=== PATIENT | female | born 1995 | race Two or more races ===

== ENCOUNTER → 2016-12-30 | Outpatient (CLI) | payer BC ==
[2016-12-30 10:24] LABS: Basophils # (auto) 0 uL; Basophils % (auto) 0.2 % (0.0-2.0); Eosinophils # (auto) 0.1 uL; Eosinophils % (auto) 1.4 % (0.0-7.0); Hematocrit 42.6 % (36.0-46.0); Hemoglobin 14.1 g/dL (12.2-16.2); Lymphocytes # (auto) 2.6 uL; Lymphocytes % (auto) 32.5 % (10.0-50.0); Mean Corpuscular Hemoglobin 28.6 pg (28.0-32.0); Mean Corpuscular Hgb Conc. 33.2 g/dL (32.0-36.0); Mean Corpuscular Volume 86.2 fL (80.0-100.0); Mean Platelet Volume 9.5 fL (7.4-10.4); Monocytes # (auto) 0.5 uL; Monocytes % (auto) 5.6 % (0.0-12.0); Neutrophils # (auto) 4.9 uL; Neutrophils % (auto) 60.3 % (37.0-80.0); Platelet Count (auto) 231 10^3/uL (140-450); Red Cell Distribution Width 13.5 % (11.6-16.0); White Blood Cell 8.1 10^3/uL (4.4-10.8)
== END | disposition home or self-care (01) ==
LOC: LAB 09:24
PROVIDERS: ATTEND Specialist
DX: Z34.00 Encounter for supervision of normal first pregnancy, unspecified trimester (principal); Z11.3 Encounter for screening for infections with a predominantly sexual mode of transmission; Z31.430 Encounter of female for testing for genetic disease carrier status for procreative management; Z36 Encounter for antenatal screening of mother
CPT/HCPCS: 36415; 81220; 82951; 83036; 84702; 85025; 86592; 86703; 86762; 86850; 86900; 86901; 87086; 87340

== ENCOUNTER → 2017-01-20 | Outpatient (CLI) | payer BC | END | disposition home or self-care (01) | LOC: LAB 07:25 | PROVIDERS: ATTEND Specialist | DX: R73.09 Other abnormal glucose (principal) | CPT/HCPCS: 82951; 82952 ==

== ENCOUNTER → 2017-03-03 | Outpatient (CLI) | payer BC | END | disposition home or self-care (01) | LOC: LAB 08:08 | PROVIDERS: ATTEND Obstetrics & Gynecology | DX: O99.810 Abnormal glucose complicating pregnancy (principal); Z3A.00 Weeks of gestation of pregnancy not specified | CPT/HCPCS: 82951; 82952 ==

== ENCOUNTER → 2017-04-08 | Outpatient (CLI) | payer BC ==
[2017-04-08 07:27] LABS: Basophils # (auto) 0 uL; Basophils % (auto) 0.3 % (0.0-2.0); Eosinophils # (auto) 0.2 uL; Eosinophils % (auto) 2.1 % (0.0-7.0); Hematocrit 39.3 % (36.0-46.0); Hemoglobin 13.2 g/dL (12.2-16.2); Lymphocytes # (auto) 2.8 uL; Lymphocytes % (auto) 26.4 % (10.0-50.0); Mean Corpuscular Hemoglobin 30.1 pg (28.0-32.0); Mean Corpuscular Hgb Conc. 33.7 g/dL (32.0-36.0); Mean Corpuscular Volume 89.4 fL (80.0-100.0); Mean Platelet Volume 8.2 fL (6.9-10.8); Monocytes # (auto) 0.9 uL; Monocytes % (auto) 8.2 % (0.0-12.0); Neutrophils # (auto) 6.7 uL; Nucleated Red Blood Cells % 0.1 %; Platelet Count (auto) 227 10^3/uL (140-450); Red Cell Distribution Width 14.4 % (11.8-14.3); White Blood Cell 10.6 10^3/uL (4.4-10.8)
== END | disposition home or self-care (01) ==
LOC: LAB 07:09
PROVIDERS: ATTEND Specialist
DX: O24.419 Gestational diabetes mellitus in pregnancy, unspecified control (principal); Z3A.28 28 weeks gestation of pregnancy
CPT/HCPCS: 36415; 82951; 85025

== ENCOUNTER → 2017-06-02 | Outpatient (CLI) | payer BC ==
[2017-06-02 09:48] LABS: Basophils # (auto) 0 uL; Basophils % (auto) 0.4 % (0.0-2.0); Eosinophils # (auto) 0.1 uL; Eosinophils % (auto) 1.2 % (0.0-7.0); Hematocrit 37.1 % (36.0-46.0); Hemoglobin 12.4 g/dL (12.2-16.2); Lymphocytes # (auto) 2.8 uL; Lymphocytes % (auto) 26.7 % (10.0-50.0); Mean Corpuscular Hemoglobin 27.8 pg (28.0-32.0); Mean Corpuscular Hgb Conc. 33.4 g/dL (32.0-36.0); Mean Corpuscular Volume 83.3 fL (80.0-100.0); Mean Platelet Volume 8.1 fL (6.9-10.8); Monocytes # (auto) 0.7 uL; Neutrophils # (auto) 6.9 uL; Neutrophils % (auto) 64.7 % (37.0-80.0); Nucleated Red Blood Cells % 0.1 %; Platelet Count (auto) 232 10^3/uL (140-450); Red Cell Distribution Width 14.9 % (11.8-14.3); White Blood Cell 10.6 10^3/uL (4.4-10.8)
== END | disposition home or self-care (01) ==
LOC: LAB 09:27
PROVIDERS: ATTEND Obstetrics & Gynecology
DX: Z34.00 Encounter for supervision of normal first pregnancy, unspecified trimester (principal); N76.0 Acute vaginitis
CPT/HCPCS: 36415; 85025; 86592; 87081

== ENCOUNTER 2017-07-06 09:30 | Inpatient (IN) | payer BC ==
[~2017-07-06] VITALS: Ht 157.5 cm; Wt 60.3 kg
[2017-07-06] MEDS ORDERED: LACT. RINGERS/OXYTOCIN 20UNITS 1,000 ML IV SCH (10:49)
[2017-07-06] MEDS ORDERED: WITCH HAZEL-GLYCERIN PAD TOP PRN (11:00)
[2017-07-06] MEDS ORDERED: NALBUPHINE HCL 10 MG/1ml INJECTION IV PRN (11:00)
[2017-07-06] MEDS ORDERED: DERMOPLAST 60ML BOTTLE TOP PRN (11:00)
[2017-07-06] MEDS ORDERED: CARBOPROST TROMETHAMINE 250 MCG/1ML VIAL IM PRN (11:00)
[2017-07-06] MEDS ORDERED: LIDOCAINE 2%HCL (LOCAL ANESTH.) INJ 20ML MDV IJ ONE (11:00)
[2017-07-06] MEDS ORDERED: METHYLERGONOVINE MALEATE 0.2 MG/ML AMP IM PRN (11:00)
[2017-07-06] MEDS ORDERED: PHISODERM TOP SOLN 240ML BTL TOP PRN (11:00)
[2017-07-06 12:05] LABS: Basophils # (auto) 0 uL; Basophils % (auto) 0.2 % (0.0-2.0); Eosinophils # (auto) 0.1 uL; Hematocrit 37.5 % (36.0-46.0); Lymphocytes # (auto) 1.8 uL; Lymphocytes % (auto) 21.5 % (10.0-50.0); Mean Corpuscular Hemoglobin 26.3 pg (28.0-32.0); Mean Corpuscular Hgb Conc. 32.1 g/dL (32.0-36.0); Mean Corpuscular Volume 81.9 fL (80.0-100.0); Mean Platelet Volume 8.3 fL (6.9-10.8); Monocytes # (auto) 0.7 uL; Monocytes % (auto) 7.7 % (0.0-12.0); Neutrophils # (auto) 5.9 uL; Neutrophils % (auto) 69.6 % (37.0-80.0); Nucleated Red Blood Cells % 0.1 %; Platelet Count (auto) 204 10^3/uL (140-450); Red Cell Distribution Width 16.5 % (11.8-14.3); White Blood Cell 8.4 10^3/uL (4.4-10.8)
[2017-07-06 12:08] LABS: Urine Bilirubin Negative (Negative); Urine Blood 2+ /uL (Negative); Urine Color Yellow (Yellow); Urine Glucose Normal (Normal); Urine Ketone Negative (Negative); Urine Mucus FEW (None Seen); Urine Nitrite Negative (Negative); Urine RBC 50 /hpf (0 - 4); Urine Squamous Epithelial Cell MANY /hpf (<5); Urine Urobilinogen Normal (Negative)
[2017-07-06 12:18] LABS: INR 0.85 (0.9-1.15); Partial Thromboplastin Time 28.7 sec (22.64-33.71); Prothrombin Time 9.3 sec (9.37-12.3)
[2017-07-06 12:25] LABS: Albumin 2.3 g/dL (3.4-5.0); BUN/Creatinine Ratio 21.6; Bilirubin, Total 0.2 mg/dL (0.2-1.0); Potassium 3.8 mmol/L (3.5-5.1); Total Protein 5.9 g/dL (6.4-8.2)
[2017-07-06] MEDS: LACTATED RINGER'S 1,000 ML IV SCH (18:49)
[2017-07-07] VITALS (12 sets, daily range): BP systolic 99–136; BP diastolic 48–84
[2017-07-07] MEDS ORDERED: PROMETHAZINE HCL 25 MG/ML 1ML IV ONE (01:00)
[2017-07-07] MEDS: LACTATED RINGER'S 1,000 ML IV SCH ×4 (03:03→21:26)
[2017-07-07] MEDS ORDERED: PREN-153 OR (03:22)
[2017-07-07] MEDS ORDERED: TERBUTALINE SULFATE 1 MG/ML 1ML VIAL SC ONE ×2 (06:06→06:30)
[2017-07-07] MEDS ORDERED: LIDOCAINE HCL 2 %PF INJ 10ML AMP IJ ONE ×3 (07:45→11:19)
[2017-07-07] MEDS ORDERED: fentaNYL W ROPIVACAINE 150 ML EPI SCH ×2 (07:45→08:45)
[2017-07-07] MEDS ORDERED: ePHEDrine SULFATE 50 MG/ML AMP IV ONE ×2 (07:45→08:45)
[2017-07-07] MEDS ORDERED: NALOXONE HCL 0.4 MG/ML VIAL IV ONE ×2 (07:45→08:45)
[2017-07-07] MEDS ORDERED: fentaNYL CITRATE 100 MCG/2 ML VL IV ONE (07:45)
[2017-07-07] MEDS ORDERED: ePHEDrine SULFATE 50 MG/ML AMP ONE (07:46)
[2017-07-07] MEDS ORDERED: fentaNYL CITRATE 100 MCG/2 ML VL ONE (07:46)
[2017-07-07] MEDS ORDERED: fentaNYL W ROPIVACAINE 150 ML EPI ONE (07:47)
[2017-07-07] MEDS ORDERED: SODIUM CHLORIDE 0.9% 500 ML IV PRN (08:38)
[2017-07-07] MEDS ORDERED: ceFAZolin 1GM VL ONE (11:19)
[2017-07-07] MEDS ORDERED: OXYTOCIN 10 UNIT/ML 10ML VIAL ONE (11:21)
[2017-07-07] MEDS ORDERED: HYDROmorphone HCL 2 MG/ML VL IV PRN (12:15)
[2017-07-07] MEDS ORDERED: MORPHINE SULF INJ 2 MG/ML SYRINGE 1ML IV PRN (12:15)
[2017-07-07] MEDS ORDERED: ONDANSETRON HCL 4 MG/2 ML VIAL IV PRN (12:15)
[2017-07-07] MEDS ORDERED: ePHEDrine SULFATE 50 MG/ML AMP IV PRN (12:15)
[2017-07-07] MEDS ORDERED: hydrALAZINE HCL 20 MG/ML VL IV PRN (12:15)
[2017-07-07] MEDS ORDERED: ONDANSETRON HCL 4 MG/2 ML VIAL IV ONE (12:15)
[2017-07-07] MEDS ORDERED: KETOROLAC TROMETH 30 MG/ML 1ML VIAL IV ONE (12:15)
[2017-07-07] MEDS ORDERED: ceFAZolin 1GM/50ML 50 ML IV SCH (12:15)
[2017-07-07] MEDS ORDERED: OXYTOCIN 10UNIT/ML 1ML VIAL ONE (12:17)
[2017-07-07] MEDS ORDERED: INFLUENZA QUAD 2017-2018 0.5 ML SYRG IM ONE (14:00)
[2017-07-07] MEDS: KETOROLAC TROMETH 30 MG/ML 1ML VIAL IV SCH (17:49)
[2017-07-07] MEDS: ceFAZolin 1GM/50ML 50 ML IV SCH (20:00)
[2017-07-08] VITALS (8 sets, daily range): BP systolic 99–118; BP diastolic 53–71
[2017-07-08] MEDS: KETOROLAC TROMETH 30 MG/ML 1ML VIAL IV SCH (00:08)
[2017-07-08] MEDS: LACTATED RINGER'S 1,000 ML IV SCH (04:07)
[2017-07-08] MEDS: ceFAZolin 1GM/50ML 50 ML IV SCH ×2 (04:50→11:42)
[2017-07-08 06:46] LABS: Basophils # (auto) 0 uL; Eosinophils # (auto) 0 uL; Eosinophils % (auto) 0.2 % (0.0-7.0); Mean Platelet Volume 8.4 fL (6.9-10.8); Neutrophils # (auto) 8.4 uL; Neutrophils % (auto) 69.8 % (37.0-80.0)
[2017-07-08 06:48] LABS: Basophils % (auto) 0.1 % (0.0-2.0); Hematocrit 30.8 % (36.0-46.0); Lymphocytes # (auto) 2.6 uL; Lymphocytes % (auto) 21.4 % (10.0-50.0); Mean Corpuscular Hemoglobin 26.1 pg (28.0-32.0); Mean Corpuscular Hgb Conc. 32.4 g/dL (32.0-36.0); Mean Corpuscular Volume 80.5 fL (80.0-100.0); Monocytes % (auto) 8.5 % (0.0-12.0); Platelet Count (auto) 177 10^3/uL (140-450); Red Cell Distribution Width 16.7 % (11.8-14.3)
[2017-07-08] MEDS ORDERED: HYDROcodone-ACET 5/325MG TAB PO PRN ×2 (09:00)
[2017-07-08] MEDS: IBUPROFEN 800 MG TAB PO PRN ×2 (09:47→21:54)
[2017-07-08] MEDS: DOCUSATE SOD 100 MG CAP PO SCH ×2 (09:48→21:54)
[2017-07-09 04:08] VITALS: BP 100/53
[2017-07-09 08:00] VITALS: BP 115/54
[2017-07-09] MEDS: DOCUSATE SOD 100 MG CAP PO SCH ×2 (09:45→22:30)
[2017-07-09 12:00] VITALS: BP 114/73
[2017-07-09 16:00] VITALS: BP 91/80
[2017-07-09] MEDS: IBUPROFEN 800 MG TAB PO PRN (17:39)
[2017-07-09 20:00] VITALS: BP 111/72
[2017-07-10 00:10] VITALS: BP 115/72
[2017-07-10 04:30] VITALS: BP 109/66
[2017-07-10] MEDS: IBUPROFEN 800 MG TAB PO PRN (07:15)
[2017-07-10 08:00] VITALS: BP 103/74
== END 2017-07-10 12:30 | disposition home or self-care (01) | DRG 766 ==
LOC: LDRP 09:30 → OBSVTOIN 09:30 → LDRP 07-07 13:35
PROVIDERS: ADMIT Obstetrics & Gynecology; ATTEND Obstetrics & Gynecology
PROC: 3E0P3VZ Introduction of Hormone into Female Reproductive, Percutaneous Approach (ICD-10-PCS; 2017-07-06)
PROC: 10D00Z1 Extraction of Products of Conception, Low, Open Approach (ICD-10-PCS; principal; 2017-07-07 11:03)
DX: O76 Abnormality in fetal heart rate and rhythm complicating labor and delivery (principal); O61.9 Failed induction of labor, unspecified; O42.90 Premature rupture of membranes, unspecified as to length of time between rupture and onset of labor, unspecified weeks of gestation; O63.0 Prolonged first stage (of labor); Z37.0 Single live birth; Z3A.40 40 weeks gestation of pregnancy
CPT/HCPCS: 36415; 59025; 76818; 80053; 81001; 85025; 85610; 85730; 86850; 86900; 86901; 96365; 96366; 96374; 96375; J0690; J1885; J2590; J3010